=== PATIENT | female | born 1985 | race Caucasian/White ===

== ENCOUNTER 2020-03-11 14:34 | Emergency (ER) | payer OTHER ==
[~2020-03-11] VITALS: Ht 162.6 cm; Wt 77.1 kg
[~2020-03-11 14:34] MED LIST: ACETAMINOPHEN-1 EAC1 PO; AMOXICILLIN 50500 MG PO; IBUPROFEN 800800 M1 PO; LIDOCAINE VISC100 M1 SWISH&SPIT; NORCO 5-325 TA1 EACH PO; PENICILLIN V P500 MG PO; SERTRALINE HCL50 MG PO; TRAMADOL 50 MG50 MG PO
[2020-03-11 17:41] VITALS: BP 140/100
== END 2020-03-11 17:43 | disposition home or self-care (01) ==
LOC: M.ERS 14:34
DX: U07.1 COVID-19 (principal); Z79.899 Other long term (current) drug therapy